=== PATIENT | female | born 1935 | race Caucasian/White ===

== ENCOUNTER 2021-01-05 16:52 | Inpatient (IN) ==
[2021-01-05 17:37] LABS: Basophils % 0.1 %; Eosinophils # 0.1 K/mcL (0.0-0.6); Eosinophils % 1.1 %; Hematocrit 40.6 % (35.3-44.9); Hemoglobin 13.7 g/dL (11.5-15.4); Immature Granulocytes % 0.5 % (0-4); Lymphocytes # 0.6 K/mcL (0.6-4.6); Lymphocytes % 6.6 %; Mean Corpuscular HGB Conc 33.7 g/dL (31.6-35.5); Mean Corpuscular Hemoglobin 31.9 pg (28.0-33.3); Mean Corpuscular Volume 94.4 fL (83.0-100.0); Monocytes # 0.6 K/mcL (0.0-1.3); Monocytes % 6.5 %; Neutrophils # 7.9 K/mcL (1.6-8.9); Platelet Count 264 K/mcL (140-400); Red Cell Distribution Width 13.7 % (11.5-14.5); Segmented Neutrophils % 85.2 %; White Blood Count 9.3 K/mcL (4.3-11.1)
[2021-01-05 17:45] LABS: INR 3.6; Prothrombin Time 39.8 Seconds (9.4-12.1)
[2021-01-05 17:48] LABS: Activated Partial Thrombo Time 44.7 Seconds (26.0-36.0)
[2021-01-05 17:56] LABS: Troponin I < 0.03 ng/mL (< 0.04)
[2021-01-05 18:19] LABS: Alanine Aminotransferase 8 Units/L (7-52); Albumin 3.7 g/dL (3.5-5.7); Alkaline Phosphatase 78 Units/L (34-104); Aspartate Amino Transferase 16 Units/L (13-39); BUN/Creatinine Ratio 22 (6-26); Bilirubin,Indirect 0.3 mg/dL (0.0-1.0); Bilirubin,Total 0.3 mg/dL (0.3-1.0); Blood Urea Nitrogen 59 mg/dL (8-23); Calcium 8.8 mg/dL (8.6-10.3); Carbon Dioxide 19 mEq/L (23-29); Chloride 101 mEq/L (98-107); Globulin 3.6 g/dL (2.4-3.5); Glucose 290 mg/dL (70-105); Osmolality,Calculated 307 (280-300); Potassium 4.2 mEq/L (3.5-5.1); Sodium 135 mEq/L (136-145); Total Protein 7.3 g/dL (6.4-8.9); eGFR For African Americans 20 (> 60); eGFR For Non-African Americans 17 (> 60)
[2021-01-05] MEDS ORDERED: Naloxone 0.4 MG/ML INJ IVP PRN (18:44)
[2021-01-05] MEDS ORDERED: Acetaminophen 325 MG TABLET PO PRN (18:44)
[2021-01-05] MEDS ORDERED: Ondansetron 4 MG/2 ML VIAL IVP PRN (18:44)
[2021-01-05 18:47] LABS: Bilirubin,Urine Negative (Negative); Blood,Urine Large (Negative); Clarity,Urine Turbid (Clear); Glucose,Urine (UA) Normal (Normal); Ketones,Urine Negative (Negative); Leukocyte Esterase,Urine Large (Negative); Nitrite,Urine Positive (Negative); Protein,Urine 100 mg/dL (Neg-Trace); Urobilinogen,Urine Normal (Normal)
[2021-01-05] MEDS ORDERED: Dextrose Gel 15 GM/37.5 ML TUBE PO PRN ×2 (18:49)
[2021-01-05] MEDS ORDERED: D5% in Water 1,000 ML IVC PRN (18:49)
[2021-01-05] MEDS ORDERED: *HR* Dextrose 50 % in Water (Vial) 50 ML VIAL IVP PRN (18:49)
[2021-01-05 18:53] LABS: Color,Urine Light-Yellow (Yellow)
[2021-01-05 18:54] LABS: Bacteria,Urine Many per hpf (None-Few); Mucus,Urine Few per lpf (None-Few); RBC,Urine TNTC per hpf (0-3); WBC,Urine TNTC per hpf (0-3)
[2021-01-05] MEDS: Ringers Solution, Lactated 1,000 ML IVC SCH (19:24)
[2021-01-05] MEDS: gemfibroziL 600 MG TABLET PO SCH (22:01)
[2021-01-06] MEDS: Ringers Solution, Lactated 1,000 ML IVC SCH ×3 (00:03→21:26)
[2021-01-06 05:23] LABS: Hematocrit 35.3 % (35.3-44.9); Hemoglobin 11.9 g/dL (11.5-15.4); Mean Corpuscular HGB Conc 33.7 g/dL (31.6-35.5); Mean Corpuscular Hemoglobin 32.2 pg (28.0-33.3); Mean Corpuscular Volume 95.4 fL (83.0-100.0); Mean Platelet Volume 10.6 fL (9.4-12.4); Platelet Count 239 K/mcL (140-400); Red Cell Distribution Width 13.8 % (11.5-14.5); White Blood Count 10.2 K/mcL (4.3-11.1)
[2021-01-06 05:48] LABS: Calcium 8.4 mg/dL (8.6-10.3); Magnesium 1.8 mg/dL (1.6-2.6); Potassium 3.7 mEq/L (3.5-5.1)
[2021-01-06] MEDS ORDERED: *HR* Metformin 500 MG TABLET PO SCH (08:00)
[2021-01-06] MEDS ORDERED: *HR* Glimepiride 4 MG TABLET PO SCH (08:00)
[2021-01-06] MEDS ORDERED: lisinopriL 20 MG TABLET PO SCH (09:00)
[2021-01-06] MEDS ORDERED: cefTRIAXone 2,000 MG in 0.9 % Sodium Chloride Mini Bag 100 ML IVPB SCH ×2 (09:00→18:00)
[2021-01-06] MEDS: Insulin LISPRO 300 UNITS/3 ML VIAL SUBQ SCH ×3 (09:35→16:24)
[2021-01-06] MEDS: *HR* Digoxin 0.125 MG TABLET PO SCH (10:16)
[2021-01-06] MEDS: gemfibroziL 600 MG TABLET PO SCH ×2 (10:18→20:26)
[2021-01-06] MEDS: Verapamil ER (24 HR) 240 MG TABLET.ER PO SCH (10:19)
[2021-01-06] MEDS ORDERED: Warfarin perPT PO PRN (18:00)
[2021-01-07] MEDS: Ringers Solution, Lactated 1,000 ML IVC SCH ×2 (05:33→15:02)
[2021-01-07 05:47] LABS: Hematocrit 34.6 % (35.3-44.9); Hemoglobin 11.7 g/dL (11.5-15.4); Mean Corpuscular HGB Conc 33.8 g/dL (31.6-35.5); Mean Corpuscular Hemoglobin 32.3 pg (28.0-33.3); Mean Corpuscular Volume 95.6 fL (83.0-100.0); Mean Platelet Volume 9.8 fL (9.4-12.4); Platelet Count 223 K/mcL (140-400); Red Blood Count 3.62 M/mcL (3.82-4.97); Red Cell Distribution Width 13.8 % (11.5-14.5); White Blood Count 10.8 K/mcL (4.3-11.1)
[2021-01-07 06:14] LABS: Calcium 8.4 mg/dL (8.6-10.3); Potassium 4.1 mEq/L (3.5-5.1)
[2021-01-07 08:22] LABS: INR 3.1; Prothrombin Time 34.3 Seconds (9.4-12.1)
[2021-01-07] MEDS: Insulin LISPRO 300 UNITS/3 ML VIAL SUBQ SCH ×3 (09:45→16:24)
[2021-01-07] MEDS: gemfibroziL 600 MG TABLET PO SCH ×2 (09:49→19:42)
[2021-01-07] MEDS: *HR* Digoxin 0.125 MG TABLET PO SCH (09:49)
[2021-01-07] MEDS: Verapamil ER (24 HR) 240 MG TABLET.ER PO SCH (10:23)
[2021-01-07] MEDS ORDERED: Vancomycin 1,750 MG in 0.9 % Sodium Chloride 250 ML IVPB ONE (15:32)
[2021-01-07] MEDS ORDERED: Piperacillin/Tazobactam 3.375 GM in 0.9 % Sodium Chloride Mini Bag 100 ML IVPB SCH (16:00)
[2021-01-07] MEDS ORDERED: Vancomycin 1,750 MG/517.5 ML IV.SOLN IVPB SCH (17:00)
[2021-01-07] MEDS ORDERED: *HR* Warfarin 0.5 MG TABLET PO ONE (18:00)
[2021-01-08] MEDS: Piperacillin/Tazobactam 3.375 GM in 0.9 % Sodium Chloride Mini Bag 100 ML IVPB SCH ×2 (03:38→16:26)
[2021-01-08] MEDS: Ringers Solution, Lactated 1,000 ML IVC SCH (03:38)
[2021-01-08 07:24] LABS: INR 2.5; Prothrombin Time 28.3 Seconds (9.4-12.1)
[2021-01-08] MEDS: Insulin LISPRO 300 UNITS/3 ML VIAL SUBQ SCH ×3 (09:00→16:27)
[2021-01-08 09:02] LABS: Hematocrit 35.5 % (35.3-44.9); Mean Corpuscular HGB Conc 33.8 g/dL (31.6-35.5); Mean Corpuscular Hemoglobin 31.8 pg (28.0-33.3); Mean Corpuscular Volume 94.2 fL (83.0-100.0); Mean Platelet Volume 10.3 fL (9.4-12.4); Platelet Count 193 K/mcL (140-400); Red Blood Count 3.77 M/mcL (3.82-4.97); Red Cell Distribution Width 13.6 % (11.5-14.5); White Blood Count 10.9 K/mcL (4.3-11.1)
[2021-01-08] MEDS: Verapamil ER (24 HR) 240 MG TABLET.ER PO SCH (09:12)
[2021-01-08] MEDS: gemfibroziL 600 MG TABLET PO SCH ×2 (09:12→20:24)
[2021-01-08] MEDS: *HR* Digoxin 0.125 MG TABLET PO SCH (09:12)
[2021-01-08 09:19] LABS: Calcium 8.2 mg/dL (8.6-10.3); Potassium 4.3 mEq/L (3.5-5.1)
[2021-01-08] MEDS ORDERED: *HR* Warfarin 1 MG TABLET PO ONE (18:00)
[2021-01-08] MEDS ORDERED: Furosemide 20 MG/2 ML VIAL IVP ONE (22:05)
[2021-01-08] MEDS ORDERED: *HR* Labetalol 20 MG/4 ML SYRINGE IVP ONE (22:05)
[2021-01-09 00:07] LABS: Adenovirus Not Detected (Not Detect); Coronavirus 229E Not Detected (Not Detect); Coronavirus HKU1 Not Detected (Not Detect); Coronavirus NL63 Not Detected (Not Detect); Coronavirus OC43 Not Detected (Not Detect); Human Metapneumovirus Not Detected (Not Detect); Human Rhinovirus/Enterovirus Not Detected (Not Detect); Influenza A Subtype 2009 H1 Not Detected (Not Detect); Influenza B Not Detected (Not Detect); Parainfluenza Virus 1 Not Detected (Not Detect); SARS-CoV-2 Not Detected (Not Detect)
[2021-01-09 00:08] LABS: Bordetella Pertussis Not Detected (Not Detect); Chlamydophila pneumoniae Not Detected (Not Detect); Mycoplasma pneumoniae Not Detected (Not Detect); Parainfluenza Virus 2 Not Detected (Not Detect); Parainfluenza Virus 3 Not Detected (Not Detect); Parainfluenza Virus 4 Not Detected (Not Detect); Respiratory Syncytial Virus Not Detected (Not Detect)
[2021-01-09 03:18] VITALS: BP 176/78
== END 2021-01-09 04:18 | disposition short-term general hospital (02) | DRG 690 ==
LOC: EMEROOPIK 16:52 → INPPIK 16:52
PROVIDERS: ADMIT Family Medicine; ATTEND Family Medicine

== ENCOUNTER 2021-01-11 18:33 | Inpatient (IN) ==
[2021-01-12 06:27] LABS: Basophils # 0.1 K/mcL (0.0-0.2); Basophils % 0.6 %; Eosinophils # 0.4 K/mcL (0.0-0.6); Eosinophils % 4.5 %; Hematocrit 33.6 % (35.3-44.9); Hemoglobin 10.8 g/dL (11.5-15.4); Immature Granulocytes % 1.2 % (0-4); Lymphocytes # 1.1 K/mcL (0.6-4.6); Mean Corpuscular HGB Conc 32.1 g/dL (31.6-35.5); Mean Corpuscular Hemoglobin 31.9 pg (28.0-33.3); Mean Corpuscular Volume 99.1 fL (83.0-100.0); Mean Platelet Volume 10.6 fL (9.4-12.4); Monocytes # 0.6 K/mcL (0.0-1.3); Monocytes % 6.5 %; Neutrophils # 6.8 K/mcL (1.6-8.9); Platelet Count 262 K/mcL (140-400); Red Blood Count 3.39 M/mcL (3.82-4.97); Red Cell Distribution Width 13.6 % (11.5-14.5); Segmented Neutrophils % 75.2 %; White Blood Count 9.1 K/mcL (4.3-11.1)
[2021-01-12 06:31] LABS: INR 1.4; Prothrombin Time 16.5 Seconds (9.4-12.1)
[2021-01-12 06:51] LABS: Calcium 8.9 mg/dL (8.6-10.3); Potassium 4.2 mEq/L (3.5-5.1)
[2021-01-12] MEDS ORDERED: *HR* Metformin 500 MG TABLET PO SCH (08:00)
[2021-01-12] MEDS ORDERED: Verapamil ER (24 HR) 240 MG TABLET.ER PO SCH (09:00)
[2021-01-12] MEDS ORDERED: *HR* Digoxin 0.125 MG TABLET PO SCH (09:00)
[2021-01-12] MEDS: lisinopriL 20 MG TABLET PO SCH (09:32)
[2021-01-12] MEDS: *HR* Glimepiride 4 MG TABLET PO SCH ×2 (09:32→16:36)
[2021-01-12] MEDS: Furosemide 40 MG TABLET PO SCH (09:32)
[2021-01-12] MEDS ORDERED: *HR* Dextrose 50 % in Water (Vial) 50 ML VIAL IVP PRN (12:43)
[2021-01-12] MEDS ORDERED: Dextrose Gel 15 GM/37.5 ML TUBE PO PRN ×2 (12:43)
[2021-01-12] MEDS ORDERED: D5% in Water 1,000 ML IVC PRN (12:43)
[2021-01-12] MEDS: Doxycycline 100 MG CAPSULE PO SCH ×2 (15:00→21:16)
[2021-01-12] MEDS: Cefdinir 300 MG CAPSULE PO SCH (15:00)
[2021-01-12] MEDS: Insulin LISPRO 300 UNITS/3 ML VIAL SUBQ SCH ×2 (16:36→21:16)
[2021-01-12] MEDS ORDERED: Warfarin perPT PO PRN (18:00)
[2021-01-12] MEDS ORDERED: *HR* Warfarin 3 MG TABLET PO SCH (18:00)
[2021-01-12] MEDS ORDERED: *HR* Warfarin 3 MG TABLET PO ONE (18:00)
[2021-01-13] MEDS: Insulin LISPRO 300 UNITS/3 ML VIAL SUBQ SCH ×4 (07:52→22:31)
[2021-01-13] MEDS: Cefdinir 300 MG CAPSULE PO SCH (07:59)
[2021-01-13] MEDS: lisinopriL 20 MG TABLET PO SCH (07:59)
[2021-01-13] MEDS: Furosemide 40 MG TABLET PO SCH (07:59)
[2021-01-13] MEDS: *HR* Glimepiride 4 MG TABLET PO SCH ×2 (07:59→17:14)
[2021-01-13] MEDS: Doxycycline 100 MG CAPSULE PO SCH ×2 (08:00→20:51)
[2021-01-13 08:02] LABS: INR 1.3; Prothrombin Time 15.1 Seconds (9.4-12.1)
[2021-01-13] MEDS ORDERED: *HR* Warfarin 2 MG TABLET PO ONE (18:00)
[2021-01-13] MEDS: Nystatin POWDER 30 GM BOTTLE TP SCH (20:51)
[2021-01-14] MEDS: Insulin LISPRO 300 UNITS/3 ML VIAL SUBQ SCH ×4 (08:08→19:57)
[2021-01-14] MEDS: Nystatin POWDER 30 GM BOTTLE TP SCH ×3 (08:38→19:57)
[2021-01-14] MEDS: *HR* Glimepiride 4 MG TABLET PO SCH ×2 (08:38→17:23)
[2021-01-14] MEDS: Furosemide 40 MG TABLET PO SCH (08:38)
[2021-01-14] MEDS: lisinopriL 20 MG TABLET PO SCH (08:38)
[2021-01-14] MEDS: Doxycycline 100 MG CAPSULE PO SCH ×2 (08:38→19:57)
[2021-01-14] MEDS: Cefdinir 300 MG CAPSULE PO SCH (08:38)
[2021-01-14 08:42] LABS: INR 1.3; Prothrombin Time 15.4 Seconds (9.4-12.1)
[2021-01-14] MEDS ORDERED: *HR* Warfarin 2 MG TABLET PO ONE (18:00)
[2021-01-15 07:18] LABS: INR 1.4; Prothrombin Time 15.5 Seconds (9.4-12.1)
[2021-01-15] MEDS: Insulin LISPRO 300 UNITS/3 ML VIAL SUBQ SCH ×4 (08:23→19:25)
[2021-01-15] MEDS: Doxycycline 100 MG CAPSULE PO SCH ×2 (08:23→19:25)
[2021-01-15] MEDS: Furosemide 40 MG TABLET PO SCH (08:23)
[2021-01-15] MEDS: *HR* Glimepiride 4 MG TABLET PO SCH ×2 (08:23→17:04)
[2021-01-15] MEDS: Cefdinir 300 MG CAPSULE PO SCH (08:23)
[2021-01-15] MEDS: lisinopriL 20 MG TABLET PO SCH (08:23)
[2021-01-15] MEDS: Nystatin POWDER 30 GM BOTTLE TP SCH ×3 (08:23→19:25)
[2021-01-15] MEDS ORDERED: *HR* Warfarin 5 MG TABLET PO ONE (18:00)
[2021-01-16 07:50] LABS: Basophils % 0.4 %; Eosinophils # 0.3 K/mcL (0.0-0.6); Eosinophils % 3.3 %; Hematocrit 36.9 % (35.3-44.9); Hemoglobin 11.6 g/dL (11.5-15.4); Immature Granulocytes % 0.5 % (0-4); Lymphocytes # 1.4 K/mcL (0.6-4.6); Lymphocytes % 13.8 %; Mean Corpuscular HGB Conc 31.4 g/dL (31.6-35.5); Mean Corpuscular Hemoglobin 31.3 pg (28.0-33.3); Mean Corpuscular Volume 99.5 fL (83.0-100.0); Mean Platelet Volume 10.4 fL (9.4-12.4); Monocytes # 0.6 K/mcL (0.0-1.3); Monocytes % 6.4 %; Neutrophils # 7.4 K/mcL (1.6-8.9); Platelet Count 263 K/mcL (140-400); Red Blood Count 3.71 M/mcL (3.82-4.97); Red Cell Distribution Width 13.8 % (11.5-14.5); Segmented Neutrophils % 75.6 %; White Blood Count 9.8 K/mcL (4.3-11.1)
[2021-01-16 07:57] LABS: INR 1.4; Prothrombin Time 16.2 Seconds (9.4-12.1)
[2021-01-16 08:11] LABS: Calcium 9.1 mg/dL (8.6-10.3); Potassium 4.4 mEq/L (3.5-5.1)
[2021-01-16] MEDS: Insulin LISPRO 300 UNITS/3 ML VIAL SUBQ SCH ×4 (08:38→20:51)
[2021-01-16] MEDS: Doxycycline 100 MG CAPSULE PO SCH ×2 (08:42→20:54)
[2021-01-16] MEDS: Cefdinir 300 MG CAPSULE PO SCH (08:42)
[2021-01-16] MEDS: Furosemide 40 MG TABLET PO SCH (08:42)
[2021-01-16] MEDS: lisinopriL 20 MG TABLET PO SCH (08:42)
[2021-01-16] MEDS: Nystatin POWDER 30 GM BOTTLE TP SCH ×3 (08:43→20:54)
[2021-01-16] MEDS: *HR* Glimepiride 4 MG TABLET PO SCH ×2 (08:43→16:36)
[2021-01-16] MEDS: 0.9 % Sodium Chloride 1,000 ML IVC SCH ×2 (14:05→23:20)
[2021-01-16] MEDS ORDERED: *HR* Warfarin 5 MG TABLET PO ONE (18:00)
[2021-01-17 07:16] LABS: INR 1.5; Prothrombin Time 16.9 Seconds (9.4-12.1)
[2021-01-17 07:30] LABS: Calcium 8.6 mg/dL (8.6-10.3); Potassium 4.4 mEq/L (3.5-5.1)
[2021-01-17] MEDS: Insulin LISPRO 300 UNITS/3 ML VIAL SUBQ SCH ×4 (09:30→20:23)
[2021-01-17] MEDS: Doxycycline 100 MG CAPSULE PO SCH ×2 (09:39→20:25)
[2021-01-17] MEDS: Nystatin POWDER 30 GM BOTTLE TP SCH ×3 (09:39→20:25)
[2021-01-17] MEDS: *HR* Glimepiride 4 MG TABLET PO SCH ×2 (09:39→17:14)
[2021-01-17] MEDS: Cefdinir 300 MG CAPSULE PO SCH (09:39)
[2021-01-17] MEDS ORDERED: *HR* Warfarin 3 MG TABLET PO ONE (18:00)
[2021-01-18 08:53] LABS: INR 1.7; Prothrombin Time 19.5 Seconds (9.4-12.1)
[2021-01-18] MEDS: *HR* Glimepiride 4 MG TABLET PO SCH ×2 (09:25→16:45)
[2021-01-18] MEDS: Furosemide 40 MG TABLET PO SCH (09:25)
[2021-01-18] MEDS: lisinopriL 20 MG TABLET PO SCH (09:25)
[2021-01-18] MEDS: Nystatin POWDER 30 GM BOTTLE TP SCH ×3 (09:25→20:09)
[2021-01-18] MEDS: Insulin LISPRO 300 UNITS/3 ML VIAL SUBQ SCH ×4 (09:27→20:08)
[2021-01-18] MEDS ORDERED: *HR* Warfarin 3 MG TABLET PO ONE (18:00)
[2021-01-19 08:24] LABS: INR 2.1; Prothrombin Time 23.3 Seconds (9.4-12.1)
[2021-01-19] MEDS: Insulin LISPRO 300 UNITS/3 ML VIAL SUBQ SCH ×4 (08:26→21:13)
[2021-01-19] MEDS: Nystatin POWDER 30 GM BOTTLE TP SCH ×3 (08:28→20:53)
[2021-01-19] MEDS: Furosemide 40 MG TABLET PO SCH (08:28)
[2021-01-19] MEDS: *HR* Glimepiride 4 MG TABLET PO SCH ×2 (08:28→16:34)
[2021-01-19] MEDS: lisinopriL 20 MG TABLET PO SCH (08:28)
[2021-01-19] MEDS ORDERED: *HR* Warfarin 5 MG TABLET PO SCH (18:00)
[2021-01-20 06:33] LABS: INR 2.2
[2021-01-20] MEDS: Furosemide 40 MG TABLET PO SCH (08:23)
[2021-01-20] MEDS: lisinopriL 20 MG TABLET PO SCH (08:23)
[2021-01-20] MEDS: *HR* Glimepiride 4 MG TABLET PO SCH ×2 (08:23→16:29)
[2021-01-20] MEDS: Insulin LISPRO 300 UNITS/3 ML VIAL SUBQ SCH ×4 (08:24→21:04)
[2021-01-20] MEDS: Nystatin POWDER 30 GM BOTTLE TP SCH ×3 (08:24→21:07)
[2021-01-20] MEDS ORDERED: *HR* Warfarin 3 MG TABLET PO ONE (18:00)
[2021-01-21 06:21] LABS: INR 2.5; Prothrombin Time 28.3 Seconds (9.4-12.1)
[2021-01-21] MEDS: Insulin LISPRO 300 UNITS/3 ML VIAL SUBQ SCH ×4 (10:13→22:32)
[2021-01-21] MEDS: lisinopriL 20 MG TABLET PO SCH (10:13)
[2021-01-21] MEDS: *HR* Glimepiride 4 MG TABLET PO SCH ×2 (10:13→17:49)
[2021-01-21] MEDS: Furosemide 40 MG TABLET PO SCH (10:13)
[2021-01-21] MEDS: Nystatin POWDER 30 GM BOTTLE TP SCH ×3 (10:14→22:33)
[2021-01-21] MEDS ORDERED: *HR* Warfarin 2 MG TABLET PO ONE (18:00)
[2021-01-22 07:02] LABS: INR 2.5
[2021-01-22] MEDS: *HR* Glimepiride 4 MG TABLET PO SCH ×2 (08:28→16:42)
[2021-01-22] MEDS: lisinopriL 20 MG TABLET PO SCH (08:28)
[2021-01-22] MEDS: Furosemide 40 MG TABLET PO SCH (08:28)
[2021-01-22] MEDS: Insulin LISPRO 300 UNITS/3 ML VIAL SUBQ SCH ×4 (08:28→20:16)
[2021-01-22] MEDS: Nystatin POWDER 30 GM BOTTLE TP SCH ×3 (08:29→20:17)
[2021-01-22] MEDS ORDERED: *HR* Warfarin 2 MG TABLET PO ONE (18:00)
[2021-01-23 07:07] LABS: INR 2.3; Prothrombin Time 25.6 Seconds (9.4-12.1)
[2021-01-23] MEDS: lisinopriL 20 MG TABLET PO SCH (09:11)
[2021-01-23] MEDS: *HR* Glimepiride 4 MG TABLET PO SCH ×2 (09:11→16:35)
[2021-01-23] MEDS: Furosemide 40 MG TABLET PO SCH (09:16)
[2021-01-23] MEDS: Nystatin POWDER 30 GM BOTTLE TP SCH ×3 (09:17→19:48)
[2021-01-23] MEDS: Insulin LISPRO 300 UNITS/3 ML VIAL SUBQ SCH ×4 (09:17→19:46)
[2021-01-23] MEDS ORDERED: *HR* Warfarin 2 MG TABLET PO ONE (18:00)
[2021-01-24 05:51] LABS: Hematocrit 33.7 % (35.3-44.9); Hemoglobin 11.1 g/dL (11.5-15.4); Mean Corpuscular HGB Conc 32.9 g/dL (31.6-35.5); Mean Corpuscular Hemoglobin 31.9 pg (28.0-33.3); Mean Corpuscular Volume 96.8 fL (83.0-100.0); Mean Platelet Volume 11.9 fL (9.4-12.4); Platelet Count 218 K/mcL (140-400); Red Blood Count 3.48 M/mcL (3.82-4.97); White Blood Count 8.9 K/mcL (4.3-11.1)
[2021-01-24 06:04] LABS: Prothrombin Time 23.1 Seconds (9.4-12.1)
[2021-01-24 06:12] LABS: Calcium 9.1 mg/dL (8.6-10.3); Potassium 4.2 mEq/L (3.5-5.1)
[2021-01-24] MEDS: *HR* Glimepiride 4 MG TABLET PO SCH ×2 (08:53→16:35)
[2021-01-24] MEDS: Furosemide 40 MG TABLET PO SCH (08:53)
[2021-01-24] MEDS: lisinopriL 20 MG TABLET PO SCH (08:53)
[2021-01-24] MEDS: Nystatin POWDER 30 GM BOTTLE TP SCH ×3 (08:53→20:17)
[2021-01-24] MEDS: Insulin LISPRO 300 UNITS/3 ML VIAL SUBQ SCH ×4 (08:55→20:16)
[2021-01-24] MEDS ORDERED: *HR* Warfarin 2.5 MG TABLET PO ONE (18:00)
[2021-01-25 04:26] LABS: INR 1.7; Prothrombin Time 19.9 Seconds (9.4-12.1)
[2021-01-25] MEDS: lisinopriL 20 MG TABLET PO SCH (08:23)
[2021-01-25] MEDS: Furosemide 40 MG TABLET PO SCH (08:23)
[2021-01-25] MEDS: *HR* Glimepiride 4 MG TABLET PO SCH ×2 (08:23→17:21)
[2021-01-25] MEDS: Nystatin POWDER 30 GM BOTTLE TP SCH ×3 (08:24→21:53)
[2021-01-25] MEDS: Insulin LISPRO 300 UNITS/3 ML VIAL SUBQ SCH ×4 (08:24→21:54)
[2021-01-25] MEDS ORDERED: *HR* Warfarin 3 MG TABLET PO ONE (18:00)
[2021-01-26 06:17] LABS: INR 1.6; Prothrombin Time 17.8 Seconds (9.4-12.1)
[2021-01-26] MEDS: lisinopriL 20 MG TABLET PO SCH (07:53)
[2021-01-26] MEDS: *HR* Glimepiride 4 MG TABLET PO SCH ×2 (07:54→16:14)
[2021-01-26] MEDS: Furosemide 40 MG TABLET PO SCH (07:54)
[2021-01-26] MEDS: Insulin LISPRO 300 UNITS/3 ML VIAL SUBQ SCH ×4 (07:54→20:22)
[2021-01-26] MEDS: Nystatin POWDER 30 GM BOTTLE TP SCH ×3 (07:54→20:24)
[2021-01-26] MEDS: Acetaminophen 325 MG TABLET PO PRN (17:28)
[2021-01-26] MEDS ORDERED: *HR* Warfarin 3 MG TABLET PO ONE (18:00)
[2021-01-27] MEDS: Insulin LISPRO 300 UNITS/3 ML VIAL SUBQ SCH ×4 (08:46→20:28)
[2021-01-27] MEDS: Acetaminophen 325 MG TABLET PO PRN (08:47)
[2021-01-27] MEDS: *HR* Glimepiride 4 MG TABLET PO SCH ×2 (08:47→16:58)
[2021-01-27] MEDS: lisinopriL 20 MG TABLET PO SCH (08:47)
[2021-01-27] MEDS: Furosemide 40 MG TABLET PO SCH (08:47)
[2021-01-27] MEDS: Nystatin POWDER 30 GM BOTTLE TP SCH ×3 (08:50→20:29)
[2021-01-27] MEDS ORDERED: *HR* Warfarin 3 MG TABLET PO ONE (18:00)
[2021-01-28 07:37] LABS: INR 1.6; Prothrombin Time 18.5 Seconds (9.4-12.1)
[2021-01-28] MEDS: Nystatin POWDER 30 GM BOTTLE TP SCH ×3 (08:43→19:51)
[2021-01-28] MEDS: Furosemide 40 MG TABLET PO SCH (08:45)
[2021-01-28] MEDS: Insulin LISPRO 300 UNITS/3 ML VIAL SUBQ SCH ×4 (08:45→19:51)
[2021-01-28] MEDS: Acetaminophen 325 MG TABLET PO PRN (08:45)
[2021-01-28] MEDS: lisinopriL 20 MG TABLET PO SCH (08:45)
[2021-01-28] MEDS: *HR* Glimepiride 4 MG TABLET PO SCH ×2 (08:45→17:16)
[2021-01-28] MEDS ORDERED: *HR* Warfarin 5 MG TABLET PO ONE (18:00)
[2021-01-29 06:48] LABS: INR 1.7; Prothrombin Time 19.5 Seconds (9.4-12.1)
[2021-01-29] MEDS: Insulin LISPRO 300 UNITS/3 ML VIAL SUBQ SCH ×4 (08:09→20:36)
[2021-01-29] MEDS: Furosemide 40 MG TABLET PO SCH (08:10)
[2021-01-29] MEDS: Nystatin POWDER 30 GM BOTTLE TP SCH ×3 (08:10→20:35)
[2021-01-29] MEDS: *HR* Glimepiride 4 MG TABLET PO SCH ×2 (08:10→16:54)
[2021-01-29] MEDS: lisinopriL 20 MG TABLET PO SCH (08:10)
[2021-01-29] MEDS ORDERED: *HR* Warfarin 5 MG TABLET PO ONE (18:00)
[2021-01-30 07:56] LABS: Basophils % 0.4 %; Hematocrit 34.3 % (35.3-44.9); Hemoglobin 11.4 g/dL (11.5-15.4); Immature Granulocytes % 0.9 % (0-4); Lymphocytes # 1.5 K/mcL (0.6-4.6); Lymphocytes % 14.8 %; Mean Corpuscular HGB Conc 33.2 g/dL (31.6-35.5); Mean Corpuscular Hemoglobin 32.1 pg (28.0-33.3); Mean Corpuscular Volume 96.6 fL (83.0-100.0); Mean Platelet Volume 10.8 fL (9.4-12.4); Monocytes # 0.6 K/mcL (0.0-1.3); Monocytes % 5.3 %; Neutrophils # 7.2 K/mcL (1.6-8.9); Platelet Count 262 K/mcL (140-400); Red Blood Count 3.55 M/mcL (3.82-4.97); Red Cell Distribution Width 14.2 % (11.5-14.5); Segmented Neutrophils % 68.6 %; White Blood Count 10.4 K/mcL (4.3-11.1)
[2021-01-30] MEDS: Furosemide 40 MG TABLET PO SCH (08:04)
[2021-01-30] MEDS: *HR* Glimepiride 4 MG TABLET PO SCH ×2 (08:04→17:09)
[2021-01-30] MEDS: lisinopriL 20 MG TABLET PO SCH (08:04)
[2021-01-30] MEDS: Insulin LISPRO 300 UNITS/3 ML VIAL SUBQ SCH ×4 (08:04→20:22)
[2021-01-30] MEDS: Nystatin POWDER 30 GM BOTTLE TP SCH ×3 (08:04→20:23)
[2021-01-30 08:05] LABS: INR 1.8; Prothrombin Time 20.6 Seconds (9.4-12.1)
[2021-01-30 08:12] LABS: Calcium 8.9 mg/dL (8.6-10.3)
[2021-01-30] MEDS ORDERED: *HR* LORazepam 0.5 MG TABLET PO ONE (15:24)
[2021-01-30] MEDS ORDERED: *HR* Warfarin 5 MG TABLET PO ONE (18:00)
[2021-01-30 19:48] LABS: Bilirubin,Urine Negative (Negative); Blood,Urine Moderate (Negative); Clarity,Urine Cloudy (Clear); Color,Urine Yellow (Yellow); Glucose,Urine (UA) Normal (Normal); Ketones,Urine Negative (Negative); Leukocyte Esterase,Urine Moderate (Negative); Nitrite,Urine Negative (Negative); Protein,Urine Negative (Neg-Trace); Specific Gravity,Urine 1.015 (1.010-1.025); Urobilinogen,Urine Normal (Normal)
[2021-01-30 20:09] LABS: Bacteria,Urine Many per hpf (None-Few); Mucus,Urine Many per lpf (None-Few); WBC,Urine TNTC per hpf (0-3)
[2021-01-30 20:10] LABS: Budding Yeast,Urine Few per hpf (None Seen)
[2021-01-30 20:11] LABS: Squamous Epithelial Cell,Urine Moderate per hpf (None-Few); Transitional Epi Cells,Urine Few per hpf (None-Few)
[2021-01-30 20:13] LABS: RBC,Urine 15-30 per hpf (0-3)
[2021-01-31 08:12] LABS: INR 1.9; Prothrombin Time 21.9 Seconds (9.4-12.1)
[2021-01-31] MEDS: cefTRIAXone 2,000 MG in 0.9 % Sodium Chloride Mini Bag 100 ML IVPB SCH (09:46)
[2021-01-31] MEDS: Fluconazole 100 MG TABLET PO SCH (09:50)
[2021-01-31] MEDS: lisinopriL 20 MG TABLET PO SCH (09:50)
[2021-01-31] MEDS: *HR* Glimepiride 4 MG TABLET PO SCH ×2 (09:50→17:07)
[2021-01-31] MEDS: Furosemide 40 MG TABLET PO SCH (09:51)
[2021-01-31] MEDS: Insulin LISPRO 300 UNITS/3 ML VIAL SUBQ SCH ×4 (09:53→20:12)
[2021-01-31] MEDS: Nystatin POWDER 30 GM BOTTLE TP SCH ×3 (09:58→20:13)
[2021-01-31] MEDS ORDERED: *HR* Warfarin 3 MG TABLET PO ONE (18:00)
[2021-02-01] MEDS: *HR* Glimepiride 4 MG TABLET PO SCH ×2 (08:38→17:12)
[2021-02-01] MEDS: Furosemide 40 MG TABLET PO SCH (08:38)
[2021-02-01] MEDS: Fluconazole 100 MG TABLET PO SCH (08:38)
[2021-02-01] MEDS: lisinopriL 20 MG TABLET PO SCH (08:38)
[2021-02-01] MEDS: Nystatin POWDER 30 GM BOTTLE TP SCH ×3 (08:39→19:52)
[2021-02-01] MEDS: cefTRIAXone 2,000 MG in 0.9 % Sodium Chloride Mini Bag 100 ML IVPB SCH (08:39)
[2021-02-01] MEDS: Insulin LISPRO 300 UNITS/3 ML VIAL SUBQ SCH ×4 (08:40→19:53)
[2021-02-01] MEDS ORDERED: *HR* Warfarin 3 MG TABLET PO ONE (18:00)
[2021-02-02] MEDS: Insulin LISPRO 300 UNITS/3 ML VIAL SUBQ SCH ×4 (08:00→19:51)
[2021-02-02] MEDS: lisinopriL 20 MG TABLET PO SCH (08:01)
[2021-02-02] MEDS: Nystatin POWDER 30 GM BOTTLE TP SCH ×3 (08:02→19:51)
[2021-02-02] MEDS: cefTRIAXone 2,000 MG in 0.9 % Sodium Chloride Mini Bag 100 ML IVPB SCH (08:02)
[2021-02-02] MEDS: Furosemide 40 MG TABLET PO SCH (08:02)
[2021-02-02] MEDS: *HR* Glimepiride 4 MG TABLET PO SCH ×2 (08:02→16:47)
[2021-02-02] MEDS ORDERED: Fluconazole 100 MG TABLET PO SCH (09:00)
[2021-02-02] MEDS ORDERED: *HR* Warfarin 3 MG TABLET PO ONE (18:00)
[2021-02-03] MEDS: Insulin LISPRO 300 UNITS/3 ML VIAL SUBQ SCH ×4 (08:10→20:14)
[2021-02-03] MEDS: lisinopriL 20 MG TABLET PO SCH (08:58)
[2021-02-03] MEDS: Furosemide 40 MG TABLET PO SCH (08:58)
[2021-02-03] MEDS: *HR* Glimepiride 4 MG TABLET PO SCH ×2 (08:59→16:24)
[2021-02-03] MEDS: Nystatin POWDER 30 GM BOTTLE TP SCH ×3 (08:59→20:16)
[2021-02-03] MEDS: Apixaban 5 MG TABLET PO SCH (20:13)
[2021-02-04 06:38] VITALS: BP 104/65
[2021-02-04] MEDS: lisinopriL 20 MG TABLET PO SCH (07:59)
[2021-02-04] MEDS: Furosemide 40 MG TABLET PO SCH (07:59)
[2021-02-04] MEDS: Apixaban 5 MG TABLET PO SCH (07:59)
[2021-02-04] MEDS: Nystatin POWDER 30 GM BOTTLE TP SCH ×2 (08:00→14:11)
[2021-02-04] MEDS: Insulin LISPRO 300 UNITS/3 ML VIAL SUBQ SCH ×2 (08:00→11:14)
[2021-02-04] MEDS: *HR* Glimepiride 4 MG TABLET PO SCH (08:00)
== END 2021-02-04 15:35 | DRG 871 ==
LOC: INPPIK 22:32
PROVIDERS: ADMIT Family Medicine; ATTEND Family Medicine

== ENCOUNTER 2021-02-14 06:13 | Inpatient (IN) ==
[2021-02-14] MEDS ORDERED: 0.9 % Sodium Chloride 1,000 ML IVC ONE (06:24)
[2021-02-14 07:34] LABS: Basophils % 0.1 %; Eosinophils # 0.1 K/mcL (0.0-0.6); Eosinophils % 0.6 %; Hematocrit 32.6 % (35.3-44.9); Hemoglobin 10.5 g/dL (11.5-15.4); Immature Granulocytes % 0.6 % (0-4); Lymphocytes # 0.5 K/mcL (0.6-4.6); Lymphocytes % 4.7 %; Mean Corpuscular HGB Conc 32.2 g/dL (31.6-35.5); Mean Corpuscular Hemoglobin 31.6 pg (28.0-33.3); Mean Corpuscular Volume 98.2 fL (83.0-100.0); Mean Platelet Volume 10.5 fL (9.4-12.4); Monocytes # 0.5 K/mcL (0.0-1.3); Monocytes % 4.5 %; Neutrophils # 9.7 K/mcL (1.6-8.9); Platelet Count 206 K/mcL (140-400); Red Blood Count 3.32 M/mcL (3.82-4.97); Red Cell Distribution Width 15.1 % (11.5-14.5); Segmented Neutrophils % 89.5 %; White Blood Count 10.9 K/mcL (4.3-11.1)
[2021-02-14 07:39] LABS: INR 2.9; Prothrombin Time 32.6 Seconds (9.4-12.1)
[2021-02-14 07:55] LABS: Albumin 3.7 g/dL (3.5-5.7); Bilirubin,Total 0.3 mg/dL (0.3-1.0); Calcium 8.4 mg/dL (8.6-10.3); Globulin 3.6 g/dL (2.4-3.5); Potassium 4.8 mEq/L (3.5-5.1); Total Protein 7.3 g/dL (6.4-8.9); Troponin I 0.39 ng/mL (< 0.04)
[2021-02-14] MEDS ORDERED: Fluconazole 150 MG TABLET PO ONE (08:04)
[2021-02-14] MEDS ORDERED: cefTRIAXone 1,000 MG in 0.9 % Sodium Chloride Mini Bag 100 ML IVPB ONE (08:04)
[2021-02-14] MEDS ORDERED: MOM Conc 10 ML UD.LIQ PO PRN (10:12)
[2021-02-14] MEDS ORDERED: Naloxone 0.4 MG/ML INJ IVP PRN (10:12)
[2021-02-14] MEDS ORDERED: Acetaminophen 325 MG TABLET PO PRN (10:12)
[2021-02-14] MEDS ORDERED: Melatonin 3 MG TABLET PO PRN (10:12)
[2021-02-14] MEDS ORDERED: Ondansetron 4 MG/2 ML VIAL IVP PRN (10:12)
[2021-02-14] MEDS ORDERED: 0.9 % Sodium Chloride 1,000 ML IVC SCH (10:30)
[2021-02-14] MEDS ORDERED: D5% in Water 1,000 ML IVC PRN (10:38)
[2021-02-14] MEDS ORDERED: Dextrose Gel 15 GM/37.5 ML TUBE PO PRN ×2 (10:38)
[2021-02-14] MEDS ORDERED: *HR* Dextrose 50 % in Water (Vial) 50 ML VIAL ONE (10:41)
[2021-02-14] MEDS: *HR* Dextrose 50 % in Water (Vial) 50 ML VIAL IVP PRN ×4 (10:48→21:33)
[2021-02-14] MEDS: Nystatin POWDER 30 GM BOTTLE TP SCH ×2 (14:35→20:17)
[2021-02-14] MEDS: D10% in Water 500 ML IVC SCH ×2 (16:15→23:18)
[2021-02-14] MEDS ORDERED: *HR* Dextrose 50 % in Water (Syg) 50 ML SYRINGE IVP ONE ×2 (16:20→18:09)
[2021-02-14] MEDS ORDERED: *HR* OxyCODONE/APAP 5/325 TABLET PO PRN (17:09)
[2021-02-14] MEDS: Apixaban 5 MG TABLET PO SCH (20:13)
[2021-02-15] MEDS: *HR* Dextrose 50 % in Water (Vial) 50 ML VIAL IVP PRN ×3 (00:01→14:08)
[2021-02-15] MEDS ORDERED: Water for inj. (sterile) 10 ML ONE (03:30)
[2021-02-15] MEDS: D10% in Water 500 ML IVC SCH ×5 (05:49→21:53)
[2021-02-15] MEDS: Nystatin POWDER 30 GM BOTTLE TP SCH ×3 (08:28→23:38)
[2021-02-15] MEDS: cefTRIAXone 2,000 MG in 0.9 % Sodium Chloride Mini Bag 100 ML IVPB SCH (08:29)
[2021-02-15] MEDS: *HR* Digoxin 0.125 MG TABLET PO SCH (08:44)
[2021-02-15] MEDS: Apixaban 5 MG TABLET PO SCH ×2 (08:45→23:38)
[2021-02-15] MEDS: *HR* Dextrose 50 % in Water (Syg) 50 ML SYRINGE IVP PRN ×3 (20:15→22:01)
[2021-02-16] MEDS: D10% in Water 500 ML IVC SCH ×2 (03:08→13:14)
[2021-02-16] MEDS ORDERED: 0.9 % Sodium Chloride Mini Bag 100 ML ONE (09:08)
[2021-02-16] MEDS ORDERED: cefTRIAXone 2,000 MG in 0.9 % Sodium Chloride Mini Bag 100 ML IVPB SCH (09:30)
[2021-02-16] MEDS: *HR* Digoxin 0.125 MG TABLET PO SCH (09:51)
[2021-02-16] MEDS: Apixaban 5 MG TABLET PO SCH (09:51)
[2021-02-16] MEDS: Nystatin POWDER 30 GM BOTTLE TP SCH (09:51)
[2021-02-16] MEDS: cefTRIAXone 2,000 MG in 0.9 % Sodium Chloride Mini Bag 100 ML IVPB SCH (13:14)
[2021-02-16 15:59] VITALS: BP 127/51
== END 2021-02-16 16:58 | DRG 280 ==
LOC: EMEROOPIK 06:13 → INPPIK 06:13
PROVIDERS: ADMIT Family Medicine; ATTEND Family Medicine